=== PATIENT | female | born 1935 | race Caucasian/White ===

== ENCOUNTER → 2023-11-12 10:09 | Outpatient (REF) | payer MEDICARE, OTHER, SELFPAY ==
[2023-11-12 12:40] LABS: ALT (SGPT) 14 U/L (0-35); AST (SGOT) 26 U/L (14-36); Albumin 3.9 g/dl (3.5-5.0); Alkaline Phosphatase 116 U/L (38-126); Blood Urea Nitrogen 33 mg/dl (7-17); Calcium 9.6 mg/dl (8.4-10.2); Carbon Dioxide 27 mmol/L (22-30); Chloride 104 mmol/L (98-107); Glucose 84 mg/dl (70-99); HDL Cholesterol 79 mg/dl; LDL Cholesterol, Calculated 56 mg/dl; Potassium 4.2 mmol/L (3.5-5.1); Sodium 137 mmol/L (135-145); Total Bilirubin 0.4 mg/dl (0.2-1.3); Total Cholesterol 151 mg/dl (50-199); Total Protein 7.2 g/dl (6.3-8.2); Triglyceride 83 mg/dl (10-149); Uric Acid 6.5 mg/dl (2.5-6.2); Very Low Density Lipoprotein 16 mg/dl (0-30); eGFR > 60.00
== END ==
LOC: REG 10:09
PROVIDERS: ATTENDING PHYSICIAN Internal Medicine
DX: E03.9 Hypothyroidism, unspecified (principal); I89.0 Lymphedema, not elsewhere classified; E78.2 Mixed hyperlipidemia; Z87.39 Personal history of other diseases of the musculoskeletal system and connective tissue; R26.9 Unspecified abnormalities of gait and mobility; E66.01 Morbid (severe) obesity due to excess calories
CPT/HCPCS: 36415; 80053; 80061; 84443; 84550; 86140

== ENCOUNTER 2024-01-08 10:14 | Emergency (ER) | payer MEDICARE, OTHER, SELFPAY ==
--- NOTE | 2024-01-08 10:29 | ED.GENMED ---
History of Present Illness
General
Chief Complaint: Fall
Source: patient and ambulance crew
Exam Limitations: none
Time Seen by Provider: 01/08/24 10:16
Nursing documentation reviewed up to this point in time: agreed with
History of Present Illness
History of Present Illness:
Patient is an 88-year-old female who was brought by EMS for fall. Patient reports she slipped while using her walker but walker tipped (she sts she had her bedding/blankets hung over the walker ) and fell hitting her head on the floor on her right
shoulder and right elbow on her fireplace. She complains of a laceration to her right elbow area soreness in her shoulder. She denies any loss of conscious. She pressed her medic alert button and was on the floor when EMS arrived. EMS reports
however she is awake alert. She is not on blood thinners. She has chronic decreased range of motion and pain to right shoulder this is not new but she does feel more pain.
She denies any headache. She feels mildly sore in the neck. She is not on blood thinners.
Past History
Past History
ED Past Medical History: HTN, Hypercholesterolemia, Hypothyroidism, Other (morbid obesity; cellulitis; heel ulcer; sciatica; back pain; vitamin D deficiency), Other (bronchitis) and Other ( vascular disease; sepsis)
ED Past Surgical History: Other (wound debridement from left lower leg ulcer)
Social History
Tobacco: Non-smoker
Alcohol: None
Personal:
Living: with family
Employment: Retired
Family History
Family History: Diabetes and CAD
Review of Systems
Review of Systems
Other source history: family
All Other Systems: ROS reviewed and negative except as documented in HPI and ROS
Constitutional: Reports no symptoms
Respiratory: Reports no symptoms
Cardiac: Reports no symptoms
ABD/GI: Reports no symptoms
Musculoskeletal: Reports other (right shoulder pain neck pain )
Skin: Reports other (skin tear to right elbow )
Neurological: Reports no symptoms
Psychiatric: Reports no symptoms
Phy Exam
General Physical Exam
General Presentation: no apparent distress
General age: appears stated age
General Skin: warm and dry
General Habitus: normal
General Mental: alert
General Hydration: appears well hydrated
Cardiovascular Exam
Cardiovascular Exam: regular rate/rhythm, no murmur and normal peripheral pulses
Neurological Exam
Neurological Exam: alert and oriented x3
Musculoskeletal Exam
Musculoskeletal Exam: other (RUE with strong pulses + 3 cm full thickness laceration to right posterior elbow pain with full ROM , right shoulder with dec ROM due to pain (pt has existing shoulder pain ) right wrist with + abrasion +
ecchymosis to wrist full rom)
Skin Exam
Skin Exam: normal color
Psychiatric Exam
Psychiatric Exam: normal mood/affect
Course
Orders/Labs/Results
Orders:
Orders
01/08/24 10:20
Electrocardiogram (*1) Urgent
Reason for Study: Syncope
EKG- Treatment ONCE
01/08/24 10:29
CT Head W/o Iv Contrast Urgent
Comment:
Reason For Exam: trauma
Elbow, 3 View, Right [CR Elbow - Right Min 3 Views] Urgent
Comment:
Reason For Exam: trauma
Shoulder, Right, Trauma [CR Shoulder, Trauma - Right] Urgent
Comment:
Reason For Exam: trauma
01/08/24 10:33
CT Cervical Spine W/o Iv Contr Urgent
Comment:
Reason For Exam: trauma
Wrist, Right 3 Views [CR Wrist - Right Min 3 Views] Urgent
Comment:
Reason For Exam: trauma
01/08/24 10:34
Tetanus/Diphth/Acelpertussis [Adacel] 0.5 ml IM .ONCE ONE
01/08/24 12:05
Physical Therapy Consult [Pt Eval And Treat] Urgent
Activity Level: Ambulate
Vital Signs
Initial and Last Documented VS:
Initial Vital Signs
Temp Pulse Resp Pulse Ox
97.5 F 56 16 98
01/08/24 10:21 01/08/24 10:21 01/08/24 10:21 01/08/24 10:21
Last Documented Vital Signs
Temp Pulse Resp Pulse Ox
97.5 F 56 16 98
01/08/24 10:21 01/08/24 10:21 01/08/24 10:21 01/08/24 10:21
Procedures
Laceration Closure
right posterior elbow:
Status of Wound: clean
Size of Wound in cm: 4
Description of Wound Edges: sharp
Preparation: cleaned with saline
Anesthesia: 1% Lidocaine with epi
Revision/Debridement: routine- no revision
Type of Closure: interrupted sutures
Number of sutures: 5
MDM/Problems Addressed
Differential Diagnosis Includes:
Not limited to fracture shoulder head injury cervical injury shoulder strain laceration abrasions
MDM/Problems Addressed:
Patient is an 88-year-old female not on blood thinners describes mechanical fall her walker tipped over because she was hanging close on it and she fell hitting her head and elbow. No loss of consciousness. No obvious head injury. CT head and
cervical spine were negative. Patient is chronic right shoulder pain this is exacerbated. No acute fracture of right shoulder. Patient does have a laceration to the right elbow but good range of motion x-rays negative wound sutured as documented.
Patient is bruising to her right distal wrist with no fracture.
Patient has no complaints of chest pain EKG today does show left bundle however prior EKG was from 2016 this is changed however given the fact that patient has no symptoms no further workup.
*Radiology
Radiology exam reviewed: radiology read reviewed
*Critical Care Note
Total Time (30-74mins, 75-104mins- exclusive of procedures): Not Applicable
ED Attending Note
-
Portions of this chart may have been created with voice recognition software.� Occasional wrong word or��sound alike� substitutions may have occurred due to the inherent limitations of voice recognition software.
Discharge Plan
Departure
Patient Disposition: Home (Routine Discharge)
Date of Disposition: 01/08/24
Time of Disposition: 13:16
Patient with high blood pressure during this ER visit?: No
Covid-19: Not Applicable
Discharge Problem:
Fall, Laceration, Right shoulder strain, Abrasion
Instructions: Wound Care (DC), Head Injury in Adults (DC), Laceration Repair With Stitches (DC), Skin Abrasions (DC), Shoulder Pain ED
Prescriptions:
No Action
levothyroxine 112 MCG tablet
125 mcg PO DAILY
ascorbic acid (vitamin C) [Vitamin C] 500 MG tablet
500 mg PO DAILY Qty: 0 0RF
albuterol sulfate 2.5 MG/3 ML solution for nebulization
2.5 mg inhalation R QIDPRN PRN (Reason: SOB)
Patient Comments:
PT USES DURING THE WINTER MONTHS.
aspirin 81 MG tablet,delayed release (DR/EC)
81 mg PO QPM
potassium chloride [Klor-Con M20] 20 MEQ tablet,ER particles/crystals
20 meq PO DAILYPRN PRN (Reason: WITH FUROSEMIDE)
budesonide-formoterol [Symbicort] 1 PUFF HFA aerosol inhaler
2 puff inhalation R BIDPRN PRN (Reason: SOB)
Patient Comments:
PT TAKES DURING THE WINTER MONTHS.
multivitamin with folic acid [Tab-A-Marixa] 1 TABLET tablet
1 tab PO DAILY
cyclosporine [Restasis] 10 DROPS dropperette
1 drp BOTH EYES BID
cholecalciferol (vitamin D3) 1,000 UNITS tablet
1,000 units PO DAILY Qty: 30 0RF
cyclobenzaprine 10 MG tablet
5 mg PO HS PRN (Reason: back pain)
furosemide 40 MG tablet
20 mg PO PRN PRN (Reason: swelling)
meclizine 25 MG tablet
25 mg PO TID PRN (Reason: dizziness)
rosuvastatin [Crestor] 5 MG tablet
5 mg PO DAILY
Referrals:
Rosie Nichols MD [Family Provider] -
Activity Restrictions/Additional Instructions:
As discussed keep laceration clean and dry for 24 hours after 24 hours wash twice a day with soap and water pat dry apply small layer of antibiotic ointment to the area.
See family doctor in the next 2 days for reevaluation of symptoms, wound check. Sutures are to be removed in 10 to 12 days.
Follow-up with orthopedics for further evaluation of shoulder sprain strain and discomfort.
You May take Tylenol for pain if needed
Return if any worsening of symptoms
Interventions
Interventions:
*Risk Screen - Suicide Last Done: 01/08/24 10:21
*General Assessment Last Done: 01/08/24 10:32
*Neglect/Abuse Screening Last Done: 01/08/24 10:32
*ED COVID-19 Vaccine History Last Done: 01/08/24 10:36
ED-Musculoskeletal Assessment Last Done: 01/08/24 10:36
ED- Neurological Assessment Last Done: 01/08/24 10:36
ED-Skin Assessment Last Done: 01/08/24 10:36
Discharge Date and Time
Print Language: MONGOLIAN
[2024-01-08 10:35] VITALS: BMI 41.9
[2024-01-08 11:32] VITALS: BP 135/67
[2024-01-08 12:00] VITALS: BP 113/82
[2024-01-08 12:33] VITALS: BP 114/53
[2024-01-08 12:58] VITALS: BP 114/53; PULSE 62
[2024-01-08] MEDS: ADACEL 0.5 ML IM (13:25)
== END 2024-01-08 14:45 | disposition home or self-care (01) ==
LOC: EMR 10:14
PROVIDERS: EMERGENCY PHYSICIAN Emergency Medicine; FAMILY PHYSICIAN Internal Medicine
DX: S46.911A Strain of unspecified muscle, fascia and tendon at shoulder and upper arm level, right arm, initial encounter (principal); S51.011A Laceration without foreign body of right elbow, initial encounter; S60.211A Contusion of right wrist, initial encounter; S80.812A Abrasion, left lower leg, initial encounter; S80.811A Abrasion, right lower leg, initial encounter; S60.811A Abrasion of right wrist, initial encounter; M54.2 Cervicalgia; W01.198A Fall on same level from slipping, tripping and stumbling with subsequent striking against other object, initial encounter; Y92.009 Unspecified place in unspecified non-institutional (private) residence as the place of occurrence of the external cause; I10 Essential (primary) hypertension; E78.00 Pure hypercholesterolemia, unspecified; E03.9 Hypothyroidism, unspecified; E66.01 Morbid (severe) obesity due to excess calories; E55.9 Vitamin D deficiency, unspecified; M54.30 Sciatica, unspecified side; G89.29 Other chronic pain
CPT/HCPCS: 99284; 12032; 90471; 70450; 72125; 73030; 73080; 73110; 90715; 93005

== ENCOUNTER → 2024-02-04 09:50 | Outpatient (REF) | payer MEDICARE, OTHER, SELFPAY ==
[2024-02-04 11:29] LABS: ALT (SGPT) 20 U/L (0-35); AST (SGOT) 30 U/L (14-36); Albumin 4.1 g/dl (3.5-5.0); Alkaline Phosphatase 109 U/L (38-126); Blood Urea Nitrogen 45 mg/dl (7-17); Calcium 9.8 mg/dl (8.4-10.2); Carbon Dioxide 31 mmol/L (22-30); Chloride 104 mmol/L (98-107); Glucose 79 mg/dl (70-99); Potassium 4.3 mmol/L (3.5-5.1); Sodium 143 mmol/L (135-145); Total Bilirubin 0.3 mg/dl (0.2-1.3); Total Cholesterol 199 mg/dl (50-199); Total Protein 7.1 g/dl (6.3-8.2); Triglyceride 48 mg/dl (10-149); Very Low Density Lipoprotein 9 mg/dl (0-30); eGFR > 60.00
[2024-02-04 11:38] LABS: HDL Cholesterol 115 mg/dl; LDL Cholesterol, Calculated 75 mg/dl
[2024-02-04 12:01] LABS: TSH 2.34 uIU/ml (0.47-4.68)
== END ==
LOC: REG 09:50
PROVIDERS: ATTENDING PHYSICIAN Internal Medicine
DX: E03.9 Hypothyroidism, unspecified (principal); I10 Essential (primary) hypertension; N18.31 Chronic kidney disease, stage 3a; E78.5 Hyperlipidemia, unspecified; I89.0 Lymphedema, not elsewhere classified; I11.0 Hypertensive heart disease with heart failure; L97.911 Non-pressure chronic ulcer of unspecified part of right lower leg limited to breakdown of skin; M1A.9XX0 Chronic gout, unspecified, without tophus (tophi); E66.01 Morbid (severe) obesity due to excess calories
CPT/HCPCS: 36415; 80053; 80061; 84443; 84550; 86140

== ENCOUNTER 2024-03-11 19:19 | Emergency (ER) | payer MEDICARE, OTHER, SELFPAY ==
[2024-03-11 19:23] VITALS: BP 136/58; BMI 35.8
[2024-03-11 19:24] VITALS: BP 136/58
[2024-03-11 20:00] VITALS: BP 143/58
--- NOTE | 2024-03-11 20:41 | ED.GENMED ---
History of Present Illness
General
Chief Complaint: Fall
Source: patient and family
Exam Limitations: none
Time Seen by Provider: 03/11/24 19:38
Nursing documentation reviewed up to this point in time: agreed with
History of Present Illness
History of Present Illness:
88 y/o F with h/o HTN, HLD,
mechanical fall backwards, says her knee gave out and she fell with her walker backwards and hit her had on the ground, no vomiting, no LOC, no thinners
miostly complaining of pain in her right buttocks/hip and right knee and left shoulder as well as a skin tear on her right forearm and right lower leg
believes tetanus within the past 2 yeras
she lives with daughter who called 911 to help her up
she was able to stand briefly before transferring tot he stretcher
nothing taken for pain
normal neuro status
having R hip, Left shoulder, righ tknee pain
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
Past History
Past History
ED Past Medical History: HTN, Hypercholesterolemia, Hypothyroidism, Other (morbid obesity; cellulitis; heel ulcer; sciatica; back pain; vitamin D deficiency), Other (bronchitis) and Other ( vascular disease; sepsis)
ED Past Surgical History: Other (wound debridement from left lower leg ulcer)
Social History
Tobacco: Non-smoker
Alcohol: None
Personal:
Living: with family
Employment: Retired
Family History
Family History: Diabetes and CAD
Review of Systems
Review of Systems
Allergies reviewed?: Yes
All Other Systems: Not applicable
Phy Exam
Physical Exam
Physical Exam:
GENERAL: Alert , in no apparent distress
HEAD: NCAT
no swelling, no lacerations
NECK: no midline tenderness, active ROM intact, no paraspinal muscle tenderness;
EYE: pupils equal and reactive, EOMs intact.
ENT: o/p clr, mmm. no hemotympanum
CARDIAC: Regular rate and rhythm, no edema
LUNGS: Clear breath sounds bilaterally, no acute respiratory distress, no wheezes/rales/rhonchi
ABDOMEN: Soft, without focal tenderness, no r/g, no cvat
NEUROLOGICAL: Alert and oriented, no focal neuro deficits, CN intact, 5/5 strength, sensation intact
SKIN: Warm and dry,
skin tear approx 5 cm superficial right forearm
with some bruising
right lower leg 1 cm superficial abrasion
MUSCULOSKELETAL:left shoulder nontneder, some pain with movement, rick rotation and abduction
right knee slightly tedner, pain with flexion past 30 degrees
no laxity, not unstable
right hip flexion itact, some pain with rotation
no bruising
no back tendernss
PSYCH: Normal and appropriate interaction.
Course
Orders/Labs/Results
Orders:
Orders
03/11/24 20:12
CT Cervical Spine W/o Iv Contr Urgent
Comment:
Reason For Exam: fall backwrads hit head
CT Head W/o Iv Contrast Urgent
Comment:
Reason For Exam: fall backwards, hit head, no thinnmers
Acetaminophen [Tylenol] 650 mg PO NOW STA
CR Knee- Right 4 Or More View* Urgent
Comment:
Reason For Exam: right knee pain after fall
CR Shoulder, Trauma - Left Urgent
Comment:
Reason For Exam: left shoulder pain after fall
Hip, Right 2-3 Views [CR Hip - RT w/wo Pel 2-3 Vw*] Urgent
Comment:
Reason For Exam: right hip pain after fall
Include a pelvis x-ray?: Yes
Vital Signs
Initial and Last Documented VS:
Initial Vital Signs
Temp Pulse Resp BP Pulse Ox
97.4 F 59 18 136/58 99
03/11/24 19:23 03/11/24 19:23 03/11/24 19:23 03/11/24 19:23 03/11/24 19:23
Last Documented Vital Signs
Temp Pulse Resp BP Pulse Ox
97.4 F 59 18 127/81 99
03/11/24 19:23 03/11/24 19:23 03/11/24 19:23 03/11/24 22:00 03/11/24 22:00
Procedures
Laceration Closure
Right Arm:
Status of Wound: clean
Size of Wound in cm: 5
Description of Wound Edges: sharp
Preparation: cleaned with saline
Revision/Debridement: routine- no revision
Type of Closure: other (sterristrips)
MDM/Problems Addressed
Differential Diagnosis Includes:
fall, fracture, contusion, head injury, train, skin tear
MDM/Problems Addressed:
88 y/o F with h/o ht,, hld oa
here with mtuliple complaints after mechanical fall tonight backwards when her right knee gave out and she fell with her walker
she hit her head but no loc
no thinnners
daughter was home and couldn't lift her so called 911
pt did take a few steps
on exam she has some pain in her R knee and L shoulder, mild in the R hip
she does have mostly preserved ROM
no signs of head injury
no thinners
neuro intact
no back tendnress, bruising
xrays indep reviewed
OA L shoulder, no dislocation no fx
severe OA R knee but no fx
hip hardware in place
will trial ambulating with walker
head/neck c tarthritis but no ich
d/c home
pt tolerated walking with walker
*Critical Care Note
Total Time (30-74mins, 75-104mins- exclusive of procedures): Not Applicable
ED Attending Note
-
Portions of this chart may have been created with voice recognition software.� Occasional wrong word or��sound alike� substitutions may have occurred due to the inherent limitations of voice recognition software.
Discharge Plan
Departure
Patient Disposition: Home (Routine Discharge)
Date of Disposition: 03/11/24
Time of Disposition: 22:26
Patient with high blood pressure during this ER visit?: No
Condition: Fair
Covid-19: Not Applicable
Discharge Problem:
Skin tear of right forearm without complication, Abrasion of anterior right lower leg, Knee osteoarthritis, Osteoarthritis of left shoulder, Degenerative joint disease of cervical spine, Minor closed head injury
Instructions: Osteoarthritis, Wound Care ED
Prescriptions:
No Action
levothyroxine 112 MCG tablet
125 mcg PO DAILY
ascorbic acid (vitamin C) [Vitamin C] 500 MG tablet
500 mg PO DAILY Qty: 0 0RF
albuterol sulfate 2.5 MG/3 ML solution for nebulization
2.5 mg inhalation R QIDPRN PRN (Reason: SOB)
Patient Comments:
PT USES DURING THE WINTER MONTHS.
aspirin 81 MG tablet,delayed release (DR/EC)
81 mg PO QPM
potassium chloride [Klor-Con M20] 20 MEQ tablet,ER particles/crystals
20 meq PO DAILYPRN PRN (Reason: WITH FUROSEMIDE)
budesonide-formoterol [Symbicort] 1 PUFF HFA aerosol inhaler
2 puff inhalation R BIDPRN PRN (Reason: SOB)
Patient Comments:
PT TAKES DURING THE winter.
multivitamin with folic acid [Tab-A-Marixa] 1 TABLET tablet
1 tab PO DAILY
cyclosporine [Restasis] 10 DROPS dropperette
1 drp BOTH EYES BID
cholecalciferol (vitamin D3) 1,000 UNITS tablet
1,000 units PO DAILY Qty: 30 0RF
cyclobenzaprine 10 MG tablet
5 mg PO HS PRN (Reason: back pain)
furosemide 40 MG tablet
20 mg PO PRN PRN (Reason: swelling)
meclizine 25 MG tablet
25 mg PO TID PRN (Reason: dizziness)
rosuvastatin [Crestor] 5 MG tablet
5 mg PO DAILY
Referrals:
Rosie Nichols MD [Family Provider] - Follow up in 2-3 days
Activity Restrictions/Additional Instructions:
YOU DO NOT HAVE ANY OBVIOUS SERIOUS INJURIES FROM YOUR FALL
YOUR CAT SCAN OF HEAD WAS NEGATIVE FOR TRAUMA
YOUR NECK CT SHOWS DEGENERATIVE ARTHRITIS
LEFT SHOULDER ALSO HAS ARTHRITIS AND KNEE ARTHRITIS BUT NO FRACTURES
YOUR HIP HARDWARE IS NORMAL
TYLENOL FOR PAIN
KEEP THE WOUND CLEAN AND DRY FOR 48 HOURS ON YOUR RIGHT FOREARM
AFTER THAT THEN YOU CAN GET IT WET
THE STERRISTRIPS WILL PEEL UP AND FALL OFF
YOU CAN TRIM THE EDGES IF YOU LIKE
BRIDGER WRAP THE KNEE NEEDED DURING THE DAY
FOLLOW UP WITH YOUR ORTHOPEDIST
RETURN FOR SEVERE PAIN, VOMITING, CONFUSION, WEAKNESS OR ANY CONCERNS.
Interventions
Interventions:
*Risk Screen - Suicide Last Done: 03/11/24 19:23
*General Assessment Last Done: 03/11/24 19:23
*Neglect/Abuse Screening Last Done: 03/11/24 19:23
ED- Fall Risk Assessment Last Done: 03/11/24 19:23
*ED COVID-19 Vaccine History Last Done: 03/11/24 19:23
*Nursing Disposition Last Done: 03/11/24 22:58
ED-Musculoskeletal Assessment Last Done: 03/11/24 19:39
ED- Neurological Assessment Last Done: 03/11/24 19:39
ED-Skin Assessment Last Done: 03/11/24 19:39
Discharge Date and Time
Discharge Date/Time: 03/11/24 23:21
Print Language: ANGOLAN
[2024-03-11 21:00] VITALS: BP 136/54
[2024-03-11] MEDS: TYLENOL 650 MG PO (21:49)
[2024-03-11 22:00] VITALS: BP 127/81
== END 2024-03-11 23:21 | disposition home or self-care (01) ==
LOC: EMR 19:19
PROVIDERS: EMERGENCY PHYSICIAN Student in an Organized Health Care Education/Training Program; FAMILY PHYSICIAN Internal Medicine
DX: S09.90XA Unspecified injury of head, initial encounter (principal); S51.811A Laceration without foreign body of right forearm, initial encounter; S80.811A Abrasion, right lower leg, initial encounter; W19.XXXA Unspecified fall, initial encounter; M19.012 Primary osteoarthritis, left shoulder; M47.812 Spondylosis without myelopathy or radiculopathy, cervical region; I10 Essential (primary) hypertension; E78.00 Pure hypercholesterolemia, unspecified
CPT/HCPCS: 99285; 70450; 72125; 73030; 73502; 73564

== ENCOUNTER → 2024-04-28 10:21 | Outpatient (REF) | payer MEDICARE, OTHER, SELFPAY ==
[2024-04-28 12:37] LABS: ALT (SGPT) 19 U/L (0-35); AST (SGOT) 30 U/L (14-36); Albumin 4.2 g/dl (3.5-5.0); Alkaline Phosphatase 107 U/L (38-126); Blood Urea Nitrogen 57 mg/dl (7-17); Calcium 9.8 mg/dl (8.4-10.2); Carbon Dioxide 32 mmol/L (22-30); Chloride 101 mmol/L (98-107); Glucose 69 mg/dl (70-99); Potassium 4.5 mmol/L (3.5-5.1); Sodium 143 mmol/L (135-145); Total Bilirubin 0.5 mg/dl (0.2-1.3); Total Cholesterol 208 mg/dl (50-199); Triglyceride 50 mg/dl (10-149); Uric Acid 7.1 mg/dl (2.5-6.2); Very Low Density Lipoprotein 10 mg/dl (0-30); eGFR 53.85
[2024-04-28 12:39] LABS: C-Reactive Protein < 5.00 mg/L (0.0-10.00)
[2024-04-28 12:46] LABS: HDL Cholesterol 116 mg/dl; LDL Cholesterol, Calculated 82 mg/dl
== END ==
LOC: REG 10:21
PROVIDERS: ATTENDING PHYSICIAN Internal Medicine
DX: E03.9 Hypothyroidism, unspecified (principal); E78.5 Hyperlipidemia, unspecified; M10.9 Gout, unspecified
CPT/HCPCS: 36415; 80053; 80061; 84443; 84550; 86140

== ENCOUNTER → 2024-05-17 07:14 | Outpatient (REF) | payer MEDICARE, OTHER, SELFPAY | LOC: EMG 07:14 | PROVIDERS: ATTENDING PHYSICIAN Physician Assistant Surgical; FAMILY PHYSICIAN Internal Medicine | DX: R29.898 Other symptoms and signs involving the musculoskeletal system (principal); M25.569 Pain in unspecified knee | CPT/HCPCS: 95886; 95911 ==

== ENCOUNTER 2024-05-17 10:30 | Emergency (ER) | payer MEDICARE, OTHER, SELFPAY ==
[2024-05-17 10:39] VITALS: BP 145/87
--- NOTE | 2024-05-17 10:47 | ED.MUSCINJ ---
HPI-Injury
General
Chief Complaint: Musculo-Skeletal Complaint
Source: patient
Exam Limitations: none
Time Seen by Provider: 05/17/24 10:40
History of Present Illness-Injury
Initial Injury comments:
89-year-old female not anticoagulated presents via EMS from home after a fall in the bathroom. She lost her balance trying to get off the toilet and fell awkwardly. She notes she was hitting her head and also her neck. She complains of right
shoulder and left hand pain. No no loss of consciousness. No chest pain or shortness of breath. She notes chronic and ongoing right lower extremity discomfort.
Past History
Past History
ED Past Medical History: HTN, Hypercholesterolemia, Hypothyroidism, Other (morbid obesity; cellulitis; heel ulcer; sciatica; back pain; vitamin D deficiency), Other (bronchitis) and Other ( vascular disease; sepsis)
ED Past Surgical History: Other (wound debridement from left lower leg ulcer)
Social History
Tobacco: Non-smoker
Alcohol: None
Personal:
Living: with family
Employment: Retired
Family History
Family History: Diabetes and CAD
Phy Exam
Physical Exam
Physical Exam:
General: Well-appearing female no acute respiratory distress
HEENT: Normocephalic atraumatic
Heart: Regular rate and rhythm no murmurs
Lungs: Clear no wheeze
Musculoskeletal exam: Cervical spine is slightly tender diffusely. She is tender over the right shoulder and left hand. No deformities. Skin: Chronic venous stasis changes to the lower extremities
No lacerations
Neurologic exam: Alert conversing appropriately
Injury Course
Orders/Labs/Results
Orders:
Orders
05/17/24 10:47
CT Cervical Spine W/o Iv Contr Urgent
Comment:
Reason For Exam: fall
CT Head W/o Iv Contrast Urgent
Comment:
Reason For Exam: fall
CR Hand - Left Min 3 Views Urgent
Comment:
Reason For Exam: fall
CR Shoulder, Trauma - Right Urgent
Comment:
Reason For Exam: fall
05/17/24 11:40
PT Consult [Pt Eval And Treat] Urgent
Activity Level: Ambulate
05/17/24 12:53
Case Management Consult ONCE
Case Management Consult: Discharge Planning
Comment: patient with frequent falls ok by PT to go home with assistance/supervision
MDM/Problems Addressed
Differential Diagnosis Includes:
Fall with pain to the right shoulder left hand neck and head. Consider fracture versus dislocation cervical spine fracture or intracranial hemorrhage. CT of head and cervical spine pending to x-ray right shoulder and left hand pending
*Critical Care Note
Total Time (30-74mins, 75-104mins- exclusive of procedures): Not Applicable
Update Note
Update Note:
CT head and cervical spine were negative. X-ray left hand negative. X-ray right shoulder shows ongoing rotator cuff arthropathy but no fracture. Patient now accompanied by daughter who states this is the fourth time she is following this year.
PT consult placed for ambulation status. Patient does have an appointment at 3 PM this afternoon for EMG which would be a good idea for her perhaps she has spinal stenosis because weakness in her legs.
Patient evaluated by physical therapy of which she did well. Also spoke with case management. Case management offered rehab however patient declined. They wish to get the EMG appointment. Case management set up visiting nurses. Stable for
discharge
ED Attending Note
-
Portions of this chart may have been created with voice recognition software.� Occasional wrong word or��sound alike� substitutions may have occurred due to the inherent limitations of voice recognition software.
Discharge Plan
Departure
Patient Disposition: Home (Routine Discharge)
Date of Disposition: 05/17/24
Time of Disposition: 14:05
Patient with high blood pressure during this ER visit?: No
Discharge Problem:
Fall
Instructions: Muscle and Bone Pain (DC)
Prescriptions:
No Action
levothyroxine 112 MCG tablet
125 mcg PO DAILY
ascorbic acid (vitamin C) [Vitamin C] 500 MG tablet
500 mg PO DAILY Qty: 0 0RF
albuterol sulfate 2.5 MG/3 ML solution for nebulization
2.5 mg inhalation R QIDPRN PRN (Reason: SOB)
Patient Comments:
PT USES DURING THE WINTER MONTHS.
aspirin 81 MG tablet,delayed release (DR/EC)
81 mg PO QPM
potassium chloride [Klor-Con M20] 20 MEQ tablet,ER particles/crystals
20 meq PO DAILYPRN PRN (Reason: WITH FUROSEMIDE)
budesonide-formoterol [Symbicort] 1 PUFF HFA aerosol inhaler
2 puff inhalation R BIDPRN PRN (Reason: SOB)
Patient Comments:
PT TAKES DURING THE winter.
multivitamin with folic acid [Tab-A-Marixa] 1 TABLET tablet
1 tab PO DAILY
cyclosporine [Restasis] 10 DROPS dropperette
1 drp BOTH EYES BID
cholecalciferol (vitamin D3) 1,000 UNITS tablet
1,000 units PO DAILY Qty: 30 0RF
cyclobenzaprine 10 MG tablet
5 mg PO HS PRN (Reason: back pain)
furosemide 40 MG tablet
20 mg PO PRN PRN (Reason: swelling)
meclizine 25 MG tablet
25 mg PO TID PRN (Reason: dizziness)
rosuvastatin [Crestor] 5 MG tablet
5 mg PO DAILY
Referrals:
Rosie Nichols MD [Family Provider] -
Activity Restrictions/Additional Instructions:
Continue to use walker for ambulation. Keep appointments as scheduled. Return if needed. Case management should be helping with setting up help at home
Interventions
Interventions:
*Risk Screen - Suicide Last Done: 05/17/24 10:39
*General Assessment Last Done: 05/17/24 10:39
*Neglect/Abuse Screening Last Done: 05/17/24 10:39
*ED COVID-19 Vaccine History Last Done: 05/17/24 10:39
ED-Musculoskeletal Assessment Last Done: 05/17/24 10:39
Discharge Date and Time
Print Language: IVORIAN
[2024-05-17 13:11] VITALS: BP 123/74; PULSE 56; O2SAT 100
--- NOTE | 2024-05-17 13:37 | CM ---
CM consult for placement. PT recommending HH services. CM introduced self and role. Daughter verbalized many concerns she has for her mother. CM encouraged daughter and patient to express their concerns. Daughter and patient finally agreeable to HH
services and would like to make their 3PM EMG appointment. Daughter is driving home now to bean picker transport chair and clothes for patient and will return back.
CM set up patient's lunch.
Discussed with bedside RN and PA-C who were agreeable to plan.
== END 2024-05-17 15:00 | disposition home or self-care (01) ==
LOC: EMR 10:30
PROVIDERS: EMERGENCY PHYSICIAN Emergency Medicine; FAMILY PHYSICIAN Internal Medicine
DX: M25.511 Pain in right shoulder (principal); M79.642 Pain in left hand; W19.XXXA Unspecified fall, initial encounter; E78.00 Pure hypercholesterolemia, unspecified; I10 Essential (primary) hypertension; E03.9 Hypothyroidism, unspecified
CPT/HCPCS: 99284; 70450; 72125; 73030; 73130; 95886; 95911

== ENCOUNTER 2024-06-12 19:40 | Observation (INO) | payer MEDICARE, OTHER, SELFPAY ==
[2024-06-12 13:04] VITALS: BP 130/81
--- NOTE | 2024-06-12 13:06 | ED.GENMED ---
ED Provider Triage
<Elena Gonzales PA-C - Last Filed: 06/12/24 16:56>
-
Patient seen by provider in Triage?: Seen in Triage
Attestation: A medical screening examination has been initiated by a qualified medical provider. Based on the assessment performed at this time, it has been determined that an emergent medical condition may exist and the patient has been informed
that further medical evaluation and possible additional diagnostic testing may be needed.
HPI: 89yoF here after a fall. Turned to sit on a recliner and lost balance and fell backwards. +Head strike. No LOC. No blood thinners. C/o neck pain. Placed in a cervical collar prehospital.
GENERAL: Alert , in no apparent distress
EYE: No visual abnormalities.
NECK: Trachea midline
ENT: No visible abnormalities.
LUNGS: No acute respiratory distress
NEUROLOGICAL: Alert and oriented
SKIN: Skin intact. No visible changes.
MUSCULOSKELETAL: Moving extremities normally
PSYCH: Normal and appropriate interaction.
This is a medical evaluation conducted in person to initiate diagnostic evaluation and provide initial therapeutics. Please see further documentation by the treating clinician.
CT head and cervical spine ordered.
History of Present Illness
<Elena Gonzales PA-C - Last Filed: 06/12/24 16:56>
General
Chief Complaint: Fall
Time Seen by Provider: 06/12/24 15:04
<Luke Castaneda Jr., PA-C - Last Filed: 06/12/24 18:04>
General
Source: patient
Exam Limitations: none
Nursing documentation reviewed up to this point in time: agreed with
History of Present Illness
History of Present Illness:
89-year-old female past with history of hypertension hyperlipidemia presenting to the emergency department today after ground-level fall where she claims her right knee 'gave out she claims that this does happen regularly. Has had 5 falls over the
past month. Does live independently at home. Does have home health aides and home PT. At this point she claims that she did hit her head but denies any ongoing head pain does have some mild neck pain. Denies numbness weakness chest pain
shortness of breath abdominal pain denies any chest pain shortness of breath or lightheadedness.
Past History
<Elena Gonzales PA-C - Last Filed: 06/12/24 16:56>
Past History
ED Past Medical History: HTN, Hypercholesterolemia, Hypothyroidism, Other (morbid obesity; cellulitis; heel ulcer; sciatica; back pain; vitamin D deficiency), Other (bronchitis) and Other ( vascular disease; sepsis)
ED Past Surgical History: Other (wound debridement from left lower leg ulcer)
Social History
Tobacco: Non-smoker
Alcohol: None
Personal:
Living: with family
Employment: Retired
Family History
Family History: Diabetes and CAD
Review of Systems
<Luke Castaneda Jr., PA-C - Last Filed: 06/12/24 18:04>
Review of Systems
Allergies reviewed?: Yes
All Other Systems: ROS reviewed and negative except as documented in HPI and ROS
Phy Exam
<Luke Castaneda Jr., PA-C - Last Filed: 06/12/24 18:04>
Physical Exam
Physical Exam:
GENERAL: Alert , in no apparent distress
EYE: pupils equal and reactive
NECK: Supple, no significant adenopathy.
ENT: o/p clr, mmm.
CARDIAC: Regular rate and rhythm .
LUNGS: Clear breath sounds bilaterally, no acute respiratory distress, no wheezes/rales/rhonchi
ABDOMEN: Soft, without focal tenderness, no r/g, no cvat
NEUROLOGICAL: Alert and oriented, no focal neuro deficits
SKIN: Warm and dry, skin intact.
MUSCULOSKELETAL: No edema, well perfused.
PSYCH: Normal and appropriate interaction.
Course
<Elena Gonzales PA-C - Last Filed: 06/12/24 16:56>
Orders/Labs/Results
Orders:
Orders
06/12/24 13:10
CT Cervical Spine W/o Iv Contr Urgent
Comment:
Reason For Exam: Fall, neck pain
CT Head W/o Iv Contrast Urgent
Comment:
Reason For Exam: Fall, head strike
06/12/24 14:27
Case Management Consult ONCE
Case Management Consult: Other
Requested By:: PT/FAMILY
Comment: Pt with numerous falls recently, daughter/pt interested in perhaps rehab or even more community
resources
06/12/24 15:31
Physical Therapy Consult [Pt Eval And Treat] Urgent
Treatment: eval for safety at home vs need for rehab
Activity Level: As Tolerated
06/12/24 16:58
EKG [Electrocardiogram (*1)] Urgent
Reason for Study: Fatigue / Weakness
06/12/24 17:03
EKG- Treatment ONCE
06/12/24 17:15
CBC/With Diff [Complete Blood Count/With Diff] Urgent
CMP [Comprehensive Metabolic Panel] Urgent
06/12/24 17:57
0.9% Sodium Chloride 500 ml [Nss] 500 ml IV BOLUS
Abnormal Lab Results
06/12/24
17:15
RBC 3.76 L 10^6/uL
(4.20-5.40)
Hgb 11.4 L g/dL
(12.0-16.0)
Hct 35.0 L %
(37.0-47.0)
MCHC 32.6 L g/dL
(33.0-37.0)
RDW 15.4 H %
(11.5-14.5)
Plt Count 124 L 10^3/uL
(130-400)
MPV 10.9 H fL
(7.4-10.4)
Absolute Lymphs (auto) 1.1 L 10^3/uL
(1.2-3.4)
Immature Gran % 0.6 H %
(0-0.5)
BUN 54 H mg/dl
(7-17)
Glucose 144 H mg/dl
(70-99)
06/12/24 17:15
06/12/24 17:15
Vital Signs
Initial and Last Documented VS:
Initial Vital Signs
Temp Pulse Resp BP Pulse Ox
97.5 F 54 18 130/81 100
06/12/24 13:04 06/12/24 13:04 06/12/24 13:04 06/12/24 13:04 06/12/24 13:04
Last Documented Vital Signs
Temp Pulse Resp BP Pulse Ox
97.5 F 54 18 130/81 100
06/12/24 13:04 06/12/24 13:04 06/12/24 13:04 06/12/24 13:04 06/12/24 13:04
<Luke Castaneda Jr., PA-C - Last Filed: 06/12/24 18:04>
Orders/Labs/Results
Orders:
Orders
06/12/24 13:10
CT Cervical Spine W/o Iv Contr Urgent
Comment:
Reason For Exam: Fall, neck pain
CT Head W/o Iv Contrast Urgent
Comment:
Reason For Exam: Fall, head strike
06/12/24 14:27
Case Management Consult ONCE
Case Management Consult: Other
Requested By:: PT/FAMILY
Comment: Pt with numerous falls recently, daughter/pt interested in perhaps rehab or even more community
resources
06/12/24 15:31
Physical Therapy Consult [Pt Eval And Treat] Urgent
Treatment: eval for safety at home vs need for rehab
Activity Level: As Tolerated
06/12/24 16:58
EKG [Electrocardiogram (*1)] Urgent
Reason for Study: Fatigue / Weakness
06/12/24 17:03
EKG- Treatment ONCE
06/12/24 17:15
CBC/With Diff [Complete Blood Count/With Diff] Urgent
CMP [Comprehensive Metabolic Panel] Urgent
06/12/24 17:57
0.9% Sodium Chloride 500 ml [Nss] 500 ml IV BOLUS
Abnormal Lab Results
06/12/24
17:15
RBC 3.76 L 10^6/uL
(4.20-5.40)
Hgb 11.4 L g/dL
(12.0-16.0)
Hct 35.0 L %
(37.0-47.0)
MCHC 32.6 L g/dL
(33.0-37.0)
RDW 15.4 H %
(11.5-14.5)
Plt Count 124 L 10^3/uL
(130-400)
MPV 10.9 H fL
(7.4-10.4)
Absolute Lymphs (auto) 1.1 L 10^3/uL
(1.2-3.4)
Immature Gran % 0.6 H %
(0-0.5)
BUN 54 H mg/dl
(7-17)
Glucose 144 H mg/dl
(70-99)
06/12/24 17:15
06/12/24 17:15
Vital Signs
Initial and Last Documented VS:
Initial Vital Signs
Temp Pulse Resp BP Pulse Ox
97.5 F 54 18 130/81 100
06/12/24 13:04 06/12/24 13:04 06/12/24 13:04 06/12/24 13:04 06/12/24 13:04
Last Documented Vital Signs
Temp Pulse Resp BP Pulse Ox
97.5 F 54 18 130/81 100
06/12/24 13:04 06/12/24 13:04 06/12/24 13:04 06/12/24 13:04 06/12/24 13:04
<Luke Castaneda Jr., PA-C - Last Filed: 06/12/24 18:04>
MDM/Problems Addressed
MDM/Problems Addressed:
89-year-old female presenting to the emergency department today with concerns of a ground-level fall. Here labs unremarkable CT scan of the head and neck without emergent findings EKG normal. Patient was seen by PT and they feel that she is unsafe
to go home. Plan to admit for placement.
<Luke Castaneda Jr., PA-C - Last Filed: 06/12/24 18:04>
*Critical Care Note
Total Time (30-74mins, 75-104mins- exclusive of procedures): Not Applicable
ED Attending Note
<Elena Gonzales PA-C - Last Filed: 06/12/24 16:56>
-
Portions of this chart may have been created with voice recognition software.� Occasional wrong word or��sound alike� substitutions may have occurred due to the inherent limitations of voice recognition software.
Discharge Plan
Departure
Patient Disposition: Admit
Date of Disposition: 06/12/24
Time of Disposition: 18:00
Admit to: Med/Surg
Admit to doctor: Jez
Presentation/result/management discussed w/ accepting MD/DO: Hospitalist
Patient with high blood pressure during this ER visit?: No
Condition: Good
Covid-19: Not Applicable
Discharge Problem:
Ambulatory dysfunction
Prescriptions:
No Action
levothyroxine 112 MCG tablet
112 mcg PO HS
albuterol sulfate 2.5 MG/3 ML solution for nebulization
2.5 mg inhalation R QIDPRN PRN (Reason: SOB)
Patient Comments:
PT USES DURING THE WINTER MONTHS.
aspirin 81 MG tablet,delayed release (DR/EC)
81 mg PO QPM
budesonide-formoterol [Symbicort] 1 PUFF HFA aerosol inhaler
2 puff inhalation R BIDPRN PRN (Reason: SOB)
Patient Comments:
PT TAKES DURING THE WINTER MONTHS.
multivitamin with folic acid [Tab-A-Marixa] 1 TABLET tablet
1 tab PO NOON
cyclobenzaprine 10 MG tablet
5 mg PO HSPRN PRN (Reason: back pain)
rosuvastatin [Crestor] 5 MG tablet
5 mg PO QPM
allopurinol 100 mg tablet
100 mg PO DAILY
acetaminophen 500 mg Tablet
500 mg PO Q6HPRN PRN (Reason: mild pain)
potassium chloride 8 mEq tablet extended release
8 meq PO DAILY
naproxen sodium [Aleve] 220 mg Tablet
220 mg PO [id number] PRN (Reason: mild pain)
furosemide 20 mg tablet
20 mg PO DAILY
cholecalciferol (vitamin D3) 25 mcg (1,000 unit) Tablet
25 mcg PO NOON
ascorbic acid (vitamin C) [Vitamin C] 500 MG tablet
500 mg PO NOON
fluticasone propionate [Flonase] 50 mcg/actuation [place],Suspension
1 spray INTRANASAL DAILYPRN PRN (Reason: allergies/congestion)
Referrals:
Rosie Nichols MD [Family Provider] -
Interventions
Interventions:
*Risk Screen - Suicide Last Done: 06/12/24 14:44
*Neglect/Abuse Screening Last Done: 06/12/24 14:44
ED-Musculoskeletal Assessment Last Done: 06/12/24 17:29
ED- Neurological Assessment Last Done: 06/12/24 17:29
ED-Skin Assessment Last Done: 06/12/24 15:19
Discharge Date and Time
Print Language: BENGALI
[2024-06-12 14:18] VITALS: BMI 42.6
--- NOTE | 2024-06-12 15:13 | CM ---
Addendum entered by Leticia Ramos RN 06/12/24 17:21:
Patient stated that she would prefer [facility] instead of [facility].
Addendum entered by Leticia Ramos RN 06/12/24 16:02:
CM spoke with patient and daughter. They are agreeable to placement. They would prefer [facility], [facility] and [facility]. CM placed referrals.
Addendum entered by Leticia Ramos RN 06/12/24 15:32:
CM confirmed that patient is eligible for [facility] Waiver program. CM provided daughter with list of participating facilities.
Original Note:
CM reviewed medical records. CM confirmed that patient does have [employer] on service. Patient lives with daughter who works during the day and patient is home alone. Patient's daughter reports multiple falls in the last year. Patient had been driving
and cared for her needs independently.
CM discussed funding options for rehab. CM contacted Tandi RN to confirm if patient was eligible for [facility] program. CM will await feedback.
[2024-06-12 16:52] VITALS: BP 114/80; BP 137/68; PULSE 67; O2SAT 97
[2024-06-12 17:34] LABS: % Basophils 0.4 % (0-2); % Eosinophils 2.7 % (0-6); % Immature Granulocytes 0.6 % (0-0.5); % Lymphocytes 21.7 % (20.5-51.1); % Monocytes 5.4 % (1.7-9.3); % Neutrophils 69.2 % (42.2-75.2); Absolute Eosinophils 0.1 10^3/uL (0-0.7); Absolute Lymphocytes 1.1 10^3/uL (1.2-3.4); Absolute Monocytes 0.3 10^3/uL (0.1-0.6); Absolute Neutrophils 3.6 10^3/uL (1.4-6.5); Hemoglobin 11.4 g/dL (12.0-16.0); Mean Corp Hgb Conc. 32.6 g/dL (33.0-37.0); Mean Corpuscular Hgb 30.3 pg (27.0-31.0); Mean Corpuscular Volume 93.1 fL (81.0-99.0); Mean Platelet Volume 10.9 fL (7.4-10.4); Nucleated Red Blood Cells % 0 %; Platelet Count 124 10^3/uL (130-400); Red Blood Cell Count 3.76 10^6/uL (4.20-5.40); Red Cell Dist. Width 15.4 % (11.5-14.5); White Blood Cell Count 5.2 10^3/uL (4.8-10.8)
[2024-06-12 17:55] LABS: ALT (SGPT) 19 U/L (0-35); AST (SGOT) 30 U/L (14-36); Alkaline Phosphatase 84 U/L (38-126); Blood Urea Nitrogen 54 mg/dl (7-17); Carbon Dioxide 29 mmol/L (22-30); Chloride 104 mmol/L (98-107); Estimated Creatinine Clearance 45 ml/min; Glucose 144 mg/dl (70-99); Potassium 4.5 mmol/L (3.5-5.1); Sodium 142 mmol/L (135-145); Total Bilirubin 0.3 mg/dl (0.2-1.3); Total Protein 6.5 g/dl (6.3-8.2); eGFR > 60.00
--- NOTE | 2024-06-12 17:57 | HPS.HSE ---
Family Physician
-
Family Physician: Rosie Nichols
Chief Complaint
-
Fall
History of Present Illness
89F Morbid Obesity Sciatica Gout Right hip replacement Hypothyroidism hx HTN HLD chronic venous insufficiency/lymphedema lower ext's severe right knee osteoarthritis recently diagnosed peripheral polyneuropathy presents with fall at home after her
right knee had 'given out' during a turn. Patient has had multiple similar falls over the past year. Fall had resulted in trauma to back of head neck and back. VSS. Labs unremarkable. CT Head and neck noted no acute fractures. PT eval noted
patient was required mid-mod assist for safe mobility and was symptomatic w/ orthostatic dizziness- recommended for SNF rehab.
Medical History
Past Medical History
Past Medical History: Reports Other (as above)
Past Surgical History: Reports Other (as above)
Social History
Tobacco: Non-smoker
Alcohol: Occasional
Drug: None
Living: With Family
Family History
Family History: Not pertinent (reviewed)
Allergies / Home Medications
Allergies reflects when Allergies were last updated in [facility].
Home Medications with original date entered in [facility]
Allergy/Medication List:
Allergies
Allergy/AdvReac Type Severity Reaction Status Date / Time
Cephalosporins Allergy Unknown Verified 06/12/24 13:09
codeine Allergy Unknown Verified 06/12/24 13:11
dextrose Allergy Unknown Verified 06/12/24 13:11
hydrocodone Allergy Unknown Verified 06/12/24 13:11
latex Allergy Unknown Verified 06/12/24 13:11
Penicillins Allergy Unknown Verified 06/12/24 13:09
Sulfa (Sulfonamide Allergy Unknown Verified 06/12/24 13:11
Antibiotics)
Home Medications
levothyroxine 112 mcg tablet 112 mcg PO HS 05/08/14
albuterol sulfate 2.5 mg/3 mL (0.083 %) solution for nebulization 2.5 mg inhalation R QIDPRN PRN SOB 01/16/16
aspirin 81 mg tablet,delayed release 81 mg PO QPM 01/16/16
budesonide-formoterol HFA 80 mcg-4.5 mcg/actuation aerosol inhaler (Symbicort) 2 puff inhalation R BIDPRN PRN SOB 01/16/16
multivitamin with folic acid 400 mcg tablet (Tab-A-Marixa) 1 tab PO NOON 01/16/16
cyclobenzaprine 10 mg tablet 5 mg PO HSPRN PRN back pain 11/19/17
rosuvastatin 5 mg tablet (Crestor) 5 mg PO QPM 11/19/17
acetaminophen 500 mg tablet 500 mg PO Q6HPRN PRN mild pain 06/12/24
allopurinol 100 mg tablet 100 mg PO DAILY 06/12/24
ascorbic acid (vitamin C) 500 mg tablet (Vitamin C) 500 mg PO NOON 06/12/24
cholecalciferol (vitamin D3) 25 mcg (1,000 unit) tablet 25 mcg PO NOON 06/12/24
fluticasone propionate 50 mcg/actuation nasal spray,suspension 1 spray intranasal DAILYPRN PRN allergies/congestion 06/12/24
furosemide 20 mg tablet 20 mg PO DAILY 06/12/24
naproxen sodium 220 mg tablet (Aleve) 220 mg PO [id number] PRN mild pain 06/12/24
potassium chloride 8 mEq tablet,extended release 8 meq PO DAILY 06/12/24
Review of Systems
-
A 12 point ROS was completed and negative except as noted: Yes
Constitutional: Reports Sleep Disturbance and Other (as below)
Physical Exam
Vital Signs
Vital Signs
Temp Pulse Resp BP Pulse Ox
97.5 F 54 18 130/81 100
06/12/24 13:04 06/12/24 13:04 06/12/24 13:04 06/12/24 13:04 06/12/24 13:04
Physical Exam
General: Other (as below)
Laboratory Results
-
06/12/24 17:15
06/12/24 17:15
Laboratory Results
Total Bilirubin 0.3 mg/dl (0.2-1.3) 06/12/24 17:15
AST 30 U/L (14-36) 06/12/24 17:15
ALT 19 U/L (0-35) 06/12/24 17:15
Alkaline Phosphatase 84 U/L (38-126) 06/12/24 17:15
Impression/Plan
-
ROS
General: Denies fever chills night sweats unexpected weight loss
Neuro: Denies seizure shaking loss of consciousness reports dizziness lightheadedness standing up, reports chronic numbness soles of feet 'like stepping on cardboard'
Psych: denies depression hallucinations confusion manic episodes
Endocrine: Denies polyuria polydipsia polyphagia heat/cold intolerance
HEENT: Denies blindness visual disturbances epistaxis
Pulmonary: denies coughing hemoptysis sneezing sob dyspnea on exertion
Cardiovascular: denies chest pain palpitations
Hematology: denies signs symptoms of anemia easy bruising/bleeding
Gastrointestinal: denies nausea vomiting diarrhea constipation hematemesis hematochezia melena
Genito-Urinary: denies retention incontinence dysuria
Musculoskeletal: reports chronic right knee pain lower ext weakness
Dermatology: Reports chronic venous insufficiency skin color changes lower ext's
Physical Exam
General: No pallor, cyanosis, or jaundice.
HEENT: Throat clear. PERRLA Normocephalic atraumatic
NECK: Supple. No JVD Carotid Bruits
RESPIRATORY: Lungs clear to auscultation. No crackles wheezes stridor
CVS: S1, S2 normal. RRR. No murmur, rub or gallop.
ABDOMEN: Soft, non-tender. No distension. BS+/normal.
EXTREMITIES: No peripheral cyanosis, chronic venous insufficiency skin color changes lower ext's noted, no significant edema at this time
crepitus noted on flexion knees b/l, R>L, 3/5 strength lower ext's
FITTER HELPER: AOx3
IMPRESSION:
89F Morbid Obesity Sciatica Gout Right hip replacement Hypothyroidism hx HTN HLD chronic venous insufficiency/lymphedema lower ext's severe right knee osteoarthritis recently diagnosed peripheral polyneuropathy presents with fall at home after her
right knee had 'given out' during a turn. Patient has had multiple similar falls over the past year. Fall had resulted in trauma to back of head neck and back. VSS. Labs unremarkable. CT Head and neck noted no acute fractures. PT eval noted
patient was required mid-mod assist for safe mobility and was symptomatic w/ orthostatic dizziness- recommended for SNF rehab.
PLAN:
#Fall Ambulatory Dysfunction likely 2/2 severe right knee arthritis, possible peripheral polyneuropathy contributing, possible dehydration contributing
#Sciatica
#Gout
#Morbid Obesity
Observation Med/surg
Pain control
fall precautions
per patient's daughter FLOR Solares and patient discussed with outpt orthopedic and she is not a candidate for knee replacement due to advance age and comorbidities
cont PT/OT
monitor orthostatic vitals
CT head and cervical neck appreciated no acute abn's
check CT lumbar spine
Possible concussion, neurochecks q8h
Encourage oral hydration
Check B12 Folate Iron TIBC
#Chronic Lower ext Venous Insufficiency/Lymphedema
continue compression therapy
cont home Lasix 20 mg daily (could consider reducing to every other day especially if orthostatic symptoms/hypotension persists)
#Hypothyroidism
cont home Synthroid supplementation
check TSH reflex T4
#Hx HTN noted
only Lasix for lymphedema as above
monitor and titrate antihypertensive regimen as necessary
#HLD
cont statin
dvt ppx SCD
Full Code as per patient, FLOR daughter Sujatha present and in agreement with patient's decision
I spent a total of 76 minutes with the patient or on the floor. More than 50% of this time involved counseling and coordination of care.
[2024-06-12] MEDS: NSS 500 IV (18:12)
[2024-06-12] MEDS: TYLENOL 500 MG PO (20:37)
[2024-06-12 22:14] VITALS: BP 137/60
[2024-06-12] MEDS: SYNTHROID PO (22:26)
[2024-06-12 23:00] VITALS: BP 98/55
[2024-06-13] VITALS (11 sets, daily range): BP systolic 92–142; BP diastolic 35–100; BMI 41.8
--- NOTE | 2024-06-13 04:03 | DOWNTIME ---
There was a [employer] Client Medical Administrative Assistant Downtime on 05/16/2024 from 0100 to 05/16/2024 at 0300. Downtime documentation of patient's care, including medication administrations, has been reconciled in the electronic record per guidelines. Refer to the
patient's paper chart under the miscellaneous tab to see printed paper medication records and downtime forms.
--- NOTE | 2024-06-13 04:43 | DOWNTIME ---
There was a [facility] Client Intermodal Truck Driver Downtime on 06/13/2024 from 0100 to 06/13/2024 at 0355. Downtime documentation of patient's care, including medication administrations, has been reconciled in the electronic record per guidelines. Refer to the
patient's paper chart under the miscellaneous tab to see printed paper medication records and downtime forms.
[2024-06-13 05:52] LABS: Hematocrit 31.8 % (37.0-47.0); Hemoglobin 10.5 g/dL (12.0-16.0); Mean Corpuscular Hgb 29.7 pg (27.0-31.0); Mean Corpuscular Volume 90.1 fL (81.0-99.0); Mean Platelet Volume 10.9 fL (7.4-10.4); Platelet Count 133 10^3/uL (130-400); Red Blood Cell Count 3.53 10^6/uL (4.20-5.40); Red Cell Dist. Width 15.5 % (11.5-14.5); White Blood Cell Count 4.3 10^3/uL (4.8-10.8)
[2024-06-13 06:04] LABS: Blood Urea Nitrogen 52 mg/dl (7-17); Calcium 9.3 mg/dl (8.4-10.2); Carbon Dioxide 29 mmol/L (22-30); Chloride 108 mmol/L (98-107); Creatine Phosphokinase 55 U/L (30-135); Estimated Creatinine Clearance 45 ml/min; Glucose 129 mg/dl (70-99); Iron 58 ug/dl (37-170); Magnesium 1.9 mg/dl (1.6-2.3); Potassium 4.3 mmol/L (3.5-5.1); Sodium 144 mmol/L (135-145); eGFR > 60.00
[2024-06-13 06:13] LABS: Percent Saturation 20 % (20-50); Total Iron Binding Capacity 282 ug/dl (265-497)
[2024-06-13 06:41] LABS: TSH Reflex To Free T4 2.25 uIU/ml (0.47-4.68)
[2024-06-13 07:00] LABS: Vitamin B12 909 pg/ml (239-931)
--- NOTE | 2024-06-13 07:26 | W.PN.HOSP.TC ---
Today's Communication/Plan
-
observe
likely discharge SNF rehab tomorrow if remains stable/continues to improve
Assessment / Plan
Assessment / Plan
Physical Exam
General: No pallor, cyanosis, or jaundice.
HEENT: Throat clear. PERRLA Normocephalic atraumatic
NECK: Supple. No JVD Carotid Bruits
RESPIRATORY: Lungs clear to auscultation. No crackles wheezes stridor
CVS: S1, S2 normal. RRR. No murmur, rub or gallop.
ABDOMEN: Soft, non-tender. No distension. BS+/normal.
EXTREMITIES: No peripheral cyanosis, chronic venous insufficiency skin color changes lower ext's noted, no significant edema at this time
crepitus noted on flexion knees b/l, R>L, 3/5 strength lower ext's
MECHANICAL INSPECTOR: AOx3
IMPRESSION:
89F Morbid Obesity Sciatica Gout Right hip replacement Hypothyroidism hx HTN HLD chronic venous insufficiency/lymphedema lower ext's severe right knee osteoarthritis recently diagnosed peripheral polyneuropathy presents with fall at home after her
right knee had 'given out' during a turn. Patient has had multiple similar falls over the past year. Fall had resulted in trauma to back of head neck and back. VSS. Labs unremarkable. CT Head and neck noted no acute fractures. PT eval noted
patient was required mid-mod assist for safe mobility and was symptomatic w/ orthostatic dizziness- recommended for SNF rehab.
PLAN:
#Fall Ambulatory Dysfunction likely 2/2 severe right knee arthritis, possible peripheral polyneuropathy contributing, possible dehydration contributing
#Sciatica
#Gout
#Morbid Obesity
Observation Med/surg
Pain control
fall precautions
per patient's daughter FLOR Solares and patient discussed with outpt orthopedic and she is not a candidate for knee replacement due to advance age and comorbidities
cont PT/OT
monitor orthostatic vitals
CT head and cervical neck appreciated no acute abn's
CT lumbar spine appreciated moderate spinal canal stenosis known to patient and daughter, degenerative disc disease, otherwise no acute abn's
Possible concussion, neurochecks q8h
Encourage oral hydration
B12 Folate Iron TIBC wnl
#Chronic Lower ext Venous Insufficiency/Lymphedema
continue compression therapy
cont home Lasix 20 mg reduced to every other day
#Hypothyroidism
cont home Synthroid supplementation
TSH wnl
#Hx HTN noted
only Lasix for lymphedema as above
monitor and titrate antihypertensive regimen as necessary
#HLD
cont statin
dvt ppx SCD
Full Code
discussed with patient and patient's daughter POA
I spent a total of 40 minutes with the patient or on the floor. More than 50% of this time involved counseling and coordination of care.
Anticipated Discharge: Within 24 hours
Subjective/Interval History
-
Date of Service: June 13, 2024
no acute distress resting comfortably in bed. Reports general body aches and soreness from fall. Lightheadedness dizziness improving.
Objective Data
-
Labs:
Laboratory Results
06/13/24
05:36
WBC 4.3 L
Hgb 10.5 L
Hct 31.8 L
Plt Count 133
Sodium 144
Potassium 4.3
Chloride 108 H
Carbon Dioxide 29
BUN 52 H
Creatinine 0.9
Glucose 129 H
Calcium 9.3
Vital Signs:
Vital Signs
Temp Pulse Resp BP Pulse Ox
97.5 F 54 18 106/50 96
06/13/24 05:44 06/12/24 13:04 06/12/24 13:04 06/13/24 03:00 06/13/24 05:44
I&O
06/12/24 06/13/24 06/14/24
06:59 06:59 06:59
Output Total 400 / 400
Balance -400 / -400
[2024-06-13] MEDS: LASIX 20 MG PO (07:55)
[2024-06-13] MEDS: ZYLOPRIM 100 MG PO (07:55)
[2024-06-13] MEDS: THERAGRAN 1 TABLET PO (10:51)
[2024-06-13] MEDS: VITAMIN C 500 MG PO (10:51)
[2024-06-13] MEDS: TYLENOL 500 MG PO (10:51)
[2024-06-13] MEDS: VITAMIN D3 (cholecalciferol) 25 MCG PO (10:51)
--- NOTE | 2024-06-13 15:03 | CM ---
Addendum entered by Arminda Perrin 06/13/24 15:19:
[facility] nurse, Carly, was made aware there was a bed today at and that the attending doctor wanted to have patient stay for one more day.
Original Note:
Chart reviewed. CM introduced self and role. Patient's daughter also at bedside. Shared with them that their first choice, a [facility], was not able to accept patient. They chose [facility]. [facility] shared they had a bed today.
This information was also shared with patient and daughter. Discussed case with attending physician, who like to observe [facility] for one more day.
Patient lives at home with her daughter. They lives in a home. There are 2 steps to enter. Patient shared she also has railings to get up the steps. Patient was independent with a walker. She does not drive. Her daughter or a hired driver manager in the
neighborhood provides patient with transportation. She is retired. She denied any +SDOH's. Her daughter shared that she was just laid off at her job. She has an active pharmacy and PCP.
Patient signed [employer] letter.
ANTICIPATED DISCHARGE DISPOSITION: Transfer to [facility] for [facility] tomorrow. 06/14/2024.
[2024-06-13] MEDS: CRESTOR 5 MG PO (17:51)
[2024-06-13] MEDS: ASPIR LOW (ENTERIC COATED) 81 MG PO (17:52)
[2024-06-13] MEDS: SYNTHROID 112 MCG PO (21:09)
[2024-06-14 00:03] VITALS: BP 146/66
[2024-06-14 05:56] LABS: Hemoglobin 10.2 g/dL (12.0-16.0); Mean Corp Hgb Conc. 32.9 g/dL (33.0-37.0); Mean Corpuscular Hgb 29.6 pg (27.0-31.0); Mean Corpuscular Volume 89.9 fL (81.0-99.0); Mean Platelet Volume 10.9 fL (7.4-10.4); Platelet Count 127 10^3/uL (130-400); Red Blood Cell Count 3.45 10^6/uL (4.20-5.40); Red Cell Dist. Width 15.4 % (11.5-14.5); White Blood Cell Count 4.9 10^3/uL (4.8-10.8)
[2024-06-14 06:00] VITALS: BMI 41.8
[2024-06-14 06:14] LABS: Blood Urea Nitrogen 51 mg/dl (7-17); Calcium 9.1 mg/dl (8.4-10.2); Carbon Dioxide 28 mmol/L (22-30); Chloride 107 mmol/L (98-107); Estimated Creatinine Clearance 40 ml/min; Glucose 88 mg/dl (70-99); Potassium 4.5 mmol/L (3.5-5.1); Sodium 144 mmol/L (135-145); eGFR 53.85
--- NOTE | 2024-06-14 07:30 | W.PN.HOSP.TC ---
Addendum entered and electronically signed by Eli Gracia MD 06/14/24 10:26:
neurochecks consistently normal. no need to continue at this time
Original Note:
Today's Communication/Plan
-
discharge
Assessment / Plan
Assessment / Plan
Physical Exam
General: No pallor, cyanosis, or jaundice.
HEENT: Throat clear. PERRLA Normocephalic atraumatic
NECK: Supple. No JVD Carotid Bruits
RESPIRATORY: Lungs clear to auscultation. No crackles wheezes stridor
CVS: S1, S2 normal. RRR. No murmur, rub or gallop.
ABDOMEN: Soft, non-tender. No distension. BS+/normal.
EXTREMITIES: No peripheral cyanosis, chronic venous insufficiency skin color changes lower ext's noted, no significant edema at this time
crepitus noted on flexion knees b/l, R>L, 3/5 strength lower ext's
BLOOD COORDINATOR: AOx3
IMPRESSION:
89F Morbid Obesity Sciatica Gout Right hip replacement Hypothyroidism hx HTN HLD chronic venous insufficiency/lymphedema lower ext's severe right knee osteoarthritis recently diagnosed peripheral polyneuropathy presents with fall at home after her
right knee had 'given out' during a turn. Patient has had multiple similar falls over the past year. Fall had resulted in trauma to back of head neck and back. VSS. Labs unremarkable. CT Head and neck noted no acute fractures. PT eval noted
patient was required mid-mod assist for safe mobility and was symptomatic w/ orthostatic dizziness- recommended for SNF rehab.
PLAN:
#Fall Ambulatory Dysfunction likely 2/2 severe right knee arthritis, possible peripheral polyneuropathy contributing, possible dehydration contributing
#Sciatica
#Gout
#Morbid Obesity
Observation Med/surg
Pain control
fall precautions
per patient's daughter FLOR Solares and patient discussed with outpt orthopedic and she is not a candidate for knee replacement due to advance age and comorbidities
cont PT/OT
monitor orthostatic vitals
CT head and cervical neck appreciated no acute abn's
CT lumbar spine appreciated moderate spinal canal stenosis known to patient and daughter, degenerative disc disease, otherwise no acute abn's
Possible concussion, neurochecks q8h
Encourage oral hydration
B12 Folate Iron TIBC wnl
#Chronic Lower ext Venous Insufficiency/Lymphedema
continue compression therapy
cont home Lasix 20 mg daily (trialed every other day, switched back to daily per patient preference concerned weight gain fluid accumulation)
#Hypothyroidism
cont home Synthroid supplementation
TSH wnl
#Hx HTN noted
only Lasix for lymphedema as above
monitor and titrate antihypertensive regimen as necessary
#HLD
cont statin
dvt ppx SCD
Full Code
Medically stable for discharge SNF rehab with outpatient follow up recommendations.
discussed with patient and patient's daughter POA
Total Time Preparing Discharge ___40____ minutes including examination of the patient, summary of the hospital stay, instructions for continuing care to all relevant caregivers; and preparation of discharge records, prescriptions, and referral
forms if necessary.
Anticipated Discharge: Today
Subjective/Interval History
-
Date of Service: June 14, 2024
Seen and examined at bedside in no acute distress resting comfortably in bed. Denies new acute issues at this time. continues to note back soreness from fall prior to admission but also notes some improvement.
Objective Data
-
Labs:
Laboratory Results
06/14/24
05:25
WBC 4.9
Hgb 10.2 L
Hct 31.0 L
Plt Count 127 L
Sodium 144
Potassium 4.5
Chloride 107
Carbon Dioxide 28
BUN 51 H
Creatinine 1.0
Glucose 88
Calcium 9.1
Vital Signs:
Vital Signs
Temp Pulse Resp BP Pulse Ox
98.3 F 62 18 146/66 98
06/14/24 00:03 06/14/24 00:03 06/14/24 00:03 06/14/24 00:03 06/14/24 00:03
I&O
06/13/24 06/14/24 06/15/24
06:59 06:59 06:59
Intake Total 740 / 740
Output Total 400 / 400 1500 / 1500
Balance -400 / -400 -760 / -760
[2024-06-14 07:52] VITALS: BP 107/68
[2024-06-14] MEDS: ZYLOPRIM 100 MG PO (08:33)
--- NOTE | 2024-06-14 10:20 | W.DCSUMMARY ---
Discharge Summary
Discharge Data
Date of Admission: 06/12/24
Date of Discharge: 06/14/24
-
Pending Results: No
Discharge Plan
-
Patient Disposition: [facility]NF
Discharge Diagnosis/Procedures: Fall, Ambulatory Dysfunction likely combination severe right knee arthritis, peripheral polyneuropathy, and possible dehydration
Morbid Obesity
Sciatica
Gout
History Right Hip Replacement
Chronic Venous insufficiency/chronic Lower extremity edema
Condition: Good
Diet: Low Cholesterol and 2 Gram Sodium
Activity: With assistance, As tolerated and With Walker
Driving Restrictions: As prior to admission
Bathing Restrictions: None
Other Services: PT and OT
Specialty Instructions: Weigh Daily- Call MD for wt gain/loss 3 lbs overnight/5 lbs in 1 week
Activity Restrictions/Additional Instructions:
Please follow up with primary care provider in 1 week of discharge, orthopedic in 2-4 weeks of discharge, and continue follow up with back pain specialist.
Referrals:
Rosie Lindsay I., DO [Active] - in two to four weeks
Rosie Nichols MD [Family Provider] - in one week
Prescriptions:
Continued
levothyroxine 112 MCG tablet
112 mcg PO HS
albuterol sulfate 2.5 MG/3 ML solution for nebulization
2.5 mg inhalation R QIDPRN PRN (Reason: SOB)
Patient Comments:
PT USES DURING THE WINTER MONTHS.
aspirin 81 MG tablet,delayed release (DR/EC)
81 mg PO QPM
budesonide-formoterol [Symbicort] 1 PUFF HFA aerosol inhaler
2 puff inhalation R BIDPRN PRN (Reason: SOB)
Patient Comments:
PT TAKES DURING THE WINTER MONTHS.
multivitamin with folic acid [Tab-A-Marixa] 1 TABLET tablet
1 tab PO NOON
cyclobenzaprine 10 MG tablet
5 mg PO HSPRN PRN (Reason: back pain)
rosuvastatin [Crestor] 5 MG tablet
5 mg PO QPM
allopurinol 100 mg tablet
100 mg PO DAILY
acetaminophen 500 mg Tablet
500 mg PO Q6HPRN PRN (Reason: mild pain)
potassium chloride 8 mEq tablet extended release
8 meq PO DAILY
naproxen sodium [Aleve] 220 mg Tablet
220 mg PO [id number] PRN (Reason: mild pain)
furosemide 20 mg tablet
20 mg PO DAILY
cholecalciferol (vitamin D3) 25 mcg (1,000 unit) Tablet
25 mcg PO NOON
ascorbic acid (vitamin C) [Vitamin C] 500 MG tablet
500 mg PO NOON
fluticasone propionate 50 mcg/actuation [place],Suspension
1 spray INTRANASAL DAILYPRN PRN (Reason: allergies/congestion)
Discharge Orders:
Discharge Patient (As Directed); Ordered 06/14/24
Ordered By: Eli Gracia
Discharge Date and Time
Print Language: BURUNDIAN
--- NOTE | 2024-06-14 10:53 | CM ---
MD entered order for discharge.
Spoke with Chela at [facility] she said they have a bed with [facility] waiver program.
Spoke with Carly pantoja she will confirm coverage.
Spoke with Sujatha tapia [phone] she agrees with dc and requested ambulance .
Medical nec form completed.
[facility]
report [phone]

PLAN To [facility] today.
[2024-06-14] MEDS: LASIX 20 MG PO (11:03)
[2024-06-14] MEDS: THERAGRAN 1 TABLET PO (11:03)
[2024-06-14] MEDS: VITAMIN C 500 MG PO (11:03)
[2024-06-14] MEDS: VITAMIN D3 (cholecalciferol) 25 MCG PO (11:03)
[2024-06-14 15:41] VITALS: BP 114/65
[2024-06-14] MEDS: CRESTOR 5 MG PO (17:00)
[2024-06-14] MEDS: ASPIR LOW (ENTERIC COATED) 81 MG PO (17:00)
== END 2024-06-14 18:04 ==
LOC: 3 WEST ACU 19:40
PROVIDERS: Physician Assistant; ADMITTING PHYSICIAN Internal Medicine; EMERGENCY PHYSICIAN Emergency Medicine; FAMILY PHYSICIAN Internal Medicine
DX: R26.2 Difficulty in walking, not elsewhere classified (principal); M47.812 Spondylosis without myelopathy or radiculopathy, cervical region; M17.11 Unilateral primary osteoarthritis, right knee; W01.10XA Fall on same level from slipping, tripping and stumbling with subsequent striking against unspecified object, initial encounter; Y93.89 Activity, other specified; Y92.008 Other place in unspecified non-institutional (private) residence as the place of occurrence of the external cause; G62.9 Polyneuropathy, unspecified; R42 Dizziness and giddiness; R53.83 Other fatigue; R53.1 Weakness; I89.0 Lymphedema, not elsewhere classified; M54.2 Cervicalgia; S09.90XA Unspecified injury of head, initial encounter; G31.9 Degenerative disease of nervous system, unspecified; M10.9 Gout, unspecified; M54.9 Dorsalgia, unspecified; M48.061 Spinal stenosis, lumbar region without neurogenic claudication; M41.56 Other secondary scoliosis, lumbar region; I49.1 Atrial premature depolarization; I44.7 Left bundle-branch block, unspecified; Z68.41 Body mass index [BMI] 40.0-44.9, adult; E66.01 Morbid (severe) obesity due to excess calories; I10 Essential (primary) hypertension; E78.00 Pure hypercholesterolemia, unspecified; E55.9 Vitamin D deficiency, unspecified; E03.9 Hypothyroidism, unspecified; I87.2 Venous insufficiency (chronic) (peripheral); Z83.3 Family history of diabetes mellitus; Z79.890 Hormone replacement therapy; Z96.641 Presence of right artificial hip joint; Z79.82 Long term (current) use of aspirin; Z79.51 Long term (current) use of inhaled steroids; Z79.1 Long term (current) use of non-steroidal anti-inflammatories (NSAID); Z82.49 Family history of ischemic heart disease and other diseases of the circulatory system; Z88.5 Allergy status to narcotic agent; Z88.0 Allergy status to penicillin; Z88.2 Allergy status to sulfonamides; Z88.1 Allergy status to other antibiotic agents; Z91.040 Latex allergy status
CPT/HCPCS: 70450; 72125; 72131; 80048; 80053; 82550; 82607; 83540; 83550; 83735; 84443; 85025; 85027; 87070; 93005; 97166; G0378

== ENCOUNTER 2024-08-31 10:12 | Emergency (ER) | payer MEDICARE, OTHER, SELFPAY ==
[2024-08-31] VITALS (7 sets, daily range): BP systolic 124–155; BP diastolic 47–60; BMI 41.1
--- NOTE | 2024-08-31 10:32 | ED.GENMED ---
History of Present Illness
General
Chief Complaint: Bowel Problem
Source: patient, records and ambulance crew
Time Seen by Provider: 08/31/24 10:15
History of Present Illness
History of Present Illness:
This patient is an 89-year-old female who recently went to [facility] due to ambulatory dysfunction. She has been successfully progressing in physical therapy. She developed a UTI and then C. difficile, currently being treated with
oral vancomycin. Patient is having intermittent episodes of diarrhea still, does not like the food there, but is still tolerating eating and drinking without vomiting, fever, chest pain, shortness of breath. She does not have abdominal pain,
reports occasional cramping right before having a bowel movement. Patient says she came here because things are not happening fast enough at the facility where she is. She refused medications this morning because she knew she was coming here.
Past History
Past History
ED Past Medical History: HTN, Hypercholesterolemia, Hypothyroidism, Other (morbid obesity; cellulitis; heel ulcer; sciatica; back pain; vitamin D deficiency), Other (bronchitis) and Other ( vascular disease; sepsis)
ED Past Surgical History: Other (wound debridement from left lower leg ulcer)
Social History
Tobacco: Non-smoker
Alcohol: None
Personal:
Living: with family
Employment: Retired
Family History
Family History: Diabetes and CAD
Phy Exam
Physical Exam
Physical Exam:
GENERAL: Alert , in no apparent distress, pleasant
EYE: pupils equal and reactive
NECK: Supple, no significant adenopathy.
ENT: o/p clr, mmm.
CARDIAC: Regular rate and rhythm .
LUNGS: Clear breath sounds bilaterally, no acute respiratory distress, no wheezes/rales/rhonchi
ABDOMEN: Soft, without focal tenderness, no r/g, no cvat
NEUROLOGICAL: Alert and oriented, no focal neuro deficits
SKIN: Warm and dry, skin intact.
MUSCULOSKELETAL: tr bilate le edema, well perfused.
PSYCH: Normal and appropriate interaction.
Course
Orders/Labs/Results
Orders:
Orders
08/31/24 10:51
Vancomycin HCl [Firvanq] 125 mg PO NOW STA
08/31/24 11:11
Case Management Consult ONCE
Case Management Consult: Discharge Planning
08/31/24 11:12
Urinalysis Reflex To Culture Urgent
08/31/24 11:48
Basic Metabolic Panel Urgent
Complete Blood Count/With Diff Urgent
08/31/24 13:01
Fosfomycin [Monurol] 3 gm PO ONCE ONE
Abnormal Lab Results
08/31/24
11:48
RBC 3.74 L 10^6/uL
(4.20-5.40)
Hgb 10.6 L g/dL
(12.0-16.0)
Hct 32.9 L %
(37.0-47.0)
MCHC 32.2 L g/dL
(33.0-37.0)
MPV 10.6 H fL
(7.4-10.4)
Abs Immat Gran (auto) 0.2 H 10^3/uL
(0-0.05)
Absolute Neuts (auto) 6.6 H 10^3/uL
(1.4-6.5)
Immature Gran % 2.1 H %
(0-0.5)
Lymphocytes % 19.5 L %
(20.5-51.1)
BUN 27 H mg/dl
(7-17)
08/31/24 11:48
08/31/24 11:48
Vital Signs
Initial and Last Documented VS:
Initial Vital Signs
BP
124/47
08/31/24 10:21
Last Documented Vital Signs
Temp Pulse Resp BP Pulse Ox
97.4 F 79 26 142/60 98
08/31/24 10:23 08/31/24 13:15 08/31/24 13:15 08/31/24 13:00 08/31/24 13:15
*Critical Care Note
Total Time (30-74mins, 75-104mins- exclusive of procedures): Not Applicable
Update Note
Update Note:
Patient presents to the Emergency Department with unhappy with care facility
Number and Complexity of Problems Addressed at the Encounter
� Chronic conditions affecting care:
� Acute Exacerbation and/or Progression of Chronic Illness:
� Differential Diagnosis includes: But not limited to dehydration, anemia, etc. etc.
Amount and/or Complexity of Data to be Reviewed and Analyzed
� I performed an independent evaluation of and my interpretation is:
EKG:
CT:
Xrays:
Laboratory Studies: Baseline anemia noted, normal renal function
Other:
� Review of other/old records reveals:
� Clinical information was obtained by an independent historian: Daughter who is bedside
� Prescriptions/Medications Considered but not given:
� Further testing considered but not performed:
Risk of Complications and/or Morbidity or Mortality of Patient Management
� Social determinants of health affecting care:
� Discussion with other providers (PCP, Hospitalists, Consultants, etc):
� Escalation of care including admission/observation vs risk of discharge considered: Multiple reassessments here and discussions with daughter, case management, and the director of vocational guidance at her facility.Vema (DON)
[phone] I spoke with the director of vocational guidance, she communicated to me the UA findings which are very suggestive of a UTI. We mutually understand patient's allergies. I then discussed with infectious disease regarding patient's C. difficile
diagnosis as well as what appears to be a UTI, including all her antibiotic allergies. Dr. Yates recommends fosfomycin x 1 here which I have ordered and it asked the nurse to administer. Patient tolerated this well. I did discuss with director of
nursing and patient and daughter that the care that she needs, i.e. continued medications, can be done at the facility, and I do not identify a reason for inpatient hospitalization at this time. Patient is not having abdominal pain, and she does
not have abdominal tenderness, vomiting, anorexia, fever, etc. nursing resident is agreeable to have the patient return there. Leticia then spoke with daughter in great detail, she initially wanted to explore other options but ultimately has
agreed for patient to return to the facility.
ED Attending Note
-
Portions of this chart may have been created with voice recognition software.� Occasional wrong word or��sound alike� substitutions may have occurred due to the inherent limitations of voice recognition software.
Discharge Plan
Departure
Patient Disposition: Acute Rehab Facility
Date of Disposition: 08/31/24
Time of Disposition: 15:00
Condition: Good
Discharge Problem:
C. difficile diarrhea, UTI
Instructions: Urinary tract infections in adults, C. difficile infection, BLOOD PRESSURE
Prescriptions:
No Action
levothyroxine 112 MCG tablet
112 mcg PO HS
albuterol sulfate 2.5 MG/3 ML solution for nebulization
2.5 mg inhalation R QIDPRN PRN (Reason: SOB)
Patient Comments:
PT USES DURING THE WINTER MONTHS.
aspirin 81 MG tablet,delayed release (DR/EC)
81 mg PO QPM
budesonide-formoterol [Symbicort] 1 PUFF HFA aerosol inhaler
2 puff inhalation R BIDPRN PRN (Reason: SOB)
Patient Comments:
PT TAKES DURING THE WINTER MONTHS.
multivitamin with folic acid [Tab-A-Marixa] 1 TABLET tablet
1 tab PO NOON
cyclobenzaprine 10 MG tablet
5 mg PO HSPRN PRN (Reason: back pain)
rosuvastatin [Crestor] 5 MG tablet
5 mg PO QPM
allopurinol 100 mg tablet
100 mg PO DAILY
acetaminophen 500 mg Tablet
500 mg PO Q6HPRN PRN (Reason: mild pain)
potassium chloride 8 mEq tablet extended release
8 meq PO DAILY
naproxen sodium [Aleve] 220 mg Tablet
220 mg PO [id number] PRN (Reason: mild pain)
furosemide 20 mg tablet
20 mg PO DAILY
cholecalciferol (vitamin D3) 25 mcg (1,000 unit) Tablet
25 mcg PO NOON
ascorbic acid (vitamin C) [Vitamin C] 500 MG tablet
500 mg PO NOON
fluticasone propionate 50 mcg/actuation [place],Suspension
1 spray INTRANASAL DAILYPRN PRN (Reason: allergies/congestion)
Referrals:
Rosie Nichols MD [Family Provider] - Tomorrow
Activity Restrictions/Additional Instructions:
YOU HAVE BEEN GIVEN ANTIBIOTICS (FOSFOMYCIN) IN THE ED THAT WILL TREAT YOUR URINARY TRACT INFECTION. PLEASE HAVE YOUR DOCTOR CHECK CULTURE RESULTS. CONTINUE THE MEDICATION FOR C DIF. IF YOU DEVELOP FEVER, REPEATED VOMITING, ABDOMINAL PAIN,
BLEEDING, TROUBLE BREATHING, OR OTHER WORRISOME SIGNS, GO TO THE ER IMMEDIATELY!
Interventions
Interventions:
*Risk Screen - Suicide Last Done: 08/31/24 10:23
*General Assessment Last Done: 08/31/24 10:23
*Neglect/Abuse Screening Last Done: 08/31/24 10:23
*ED COVID-19 Vaccine History Last Done: 08/31/24 10:23
SN-Ucckao-Gmzhketphw Assessment Last Done: 08/31/24 10:32
Discharge Date and Time
Print Language: PORTUGUESE
[2024-08-31] MEDS: FIRVANQ 125 MG PO (11:00)
--- NOTE | 2024-08-31 11:39 | CM ---
Addendum entered by Leticia Ramos RN 08/31/24 15:57:
MALKA spoke with Getachew Pacheco, [facility] and Brad Fernández. No beds available at this time.
Addendum entered by Leticia Ramos RN 08/31/24 15:01:
MALKA spoke with patient's daughter who stated that she is requesting a waiver of [facility] rate. She plans to call and Manuel Hawkins to request a waiver.
MALKA was updated by Frieda Ocampo, that a waiver would not be approved. MALKA updated patient and daughter. They are now willing to work with [facility] to find additional placement.
MALKA updated bedside RN and ED MD.
Addendum entered by Leticia Ramos RN 08/31/24 13:20:
MALKA spoke with patient's daughter at bedside. Daughter had multiple complaints regarding [facility]. Patient and daughter are refusing to return. MALKA is speaking with Chela from [facility] to help with placement efforts.
Original Note:
MALKA reviewed medical records. MALKA spoke with Latoya at [facility]. She stated that patient has recently be diagnosed with CDIFF and facility physician was uncomfortable prescribing medications due to patient's multiple allergies. Laotya
stated that patient has been at [facility] for 78 days and has not stated she wanted to be transferred.
MALKA updated Marylin Salcedo.
[2024-08-31 12:07] LABS: % Basophils 0.7 % (0-2); % Eosinophils 4.9 % (0-6); % Immature Granulocytes 2.1 % (0-0.5); % Lymphocytes 19.5 % (20.5-51.1); % Monocytes 6.2 % (1.7-9.3); % Neutrophils 66.6 % (42.2-75.2); Absolute Basophils 0.1 10^3/uL (0-0.2); Absolute Eosinophils 0.5 10^3/uL (0-0.7); Absolute Immature Granulocytes 0.2 10^3/uL (0-0.05); Absolute Lymphocytes 1.9 10^3/uL (1.2-3.4); Absolute Monocytes 0.6 10^3/uL (0.1-0.6); Absolute Neutrophils 6.6 10^3/uL (1.4-6.5); Hematocrit 32.9 % (37.0-47.0); Hemoglobin 10.6 g/dL (12.0-16.0); Mean Corp Hgb Conc. 32.2 g/dL (33.0-37.0); Mean Corpuscular Hgb 28.3 pg (27.0-31.0); Mean Platelet Volume 10.6 fL (7.4-10.4); Nucleated Red Blood Cells % 0 %; Platelet Count 362 10^3/uL (130-400); Red Blood Cell Count 3.74 10^6/uL (4.20-5.40); Red Cell Dist. Width 14.5 % (11.5-14.5)
[2024-08-31 12:22] LABS: Blood Urea Nitrogen 27 mg/dl (7-17); Calcium 8.9 mg/dl (8.4-10.2); Carbon Dioxide 23 mmol/L (22-30); Chloride 107 mmol/L (98-107); Estimated Creatinine Clearance 49 ml/min; Glucose 92 mg/dl (70-99); Potassium 3.9 mmol/L (3.5-5.1); Sodium 138 mmol/L (135-145); eGFR > 60.00
[2024-08-31] MEDS: MONUROL 3 GM PO (13:11)
== END 2024-08-31 16:34 ==
LOC: EMR 10:12
PROVIDERS: EMERGENCY PHYSICIAN Emergency Medicine; FAMILY PHYSICIAN Internal Medicine
DX: N39.0 Urinary tract infection, site not specified (principal); A04.72 Enterocolitis due to Clostridium difficile, not specified as recurrent; I10 Essential (primary) hypertension
CPT/HCPCS: 99285; 80048; 85025